=== PATIENT | male | born 1940 | race Caucasian/White ===

== ENCOUNTER 2017-04-13 11:03 | Emergency (ER) | payer MEDICARE, OTHER ==
[~2017-04-13] VITALS: Ht 175.3 cm; Wt 84.1 kg
[2017-04-13 11:06] VITALS: BP 116/65; PULSE 76; RESP 15; O2SAT 98
--- NOTE | 2017-04-13 12:07 | DRSVH ---
PROCEDURE: X-RAY LEFT HAND, MINIMUM THREE VIEWS ([id number]) INDICATIONS: injury TECHNIQUE: 3 views of the hand(s) acquired. COMPARISON: None. FINDINGS: Bones: No fractures or dislocations. Boutonniere deformity of the fifth digit is noted; please corre late with clinical findings. Carpal bones are normally aligned. No suspicious bony lesions. Osteoar thritic degenerative changes are noted. Soft tissues: No suspicious soft tissue calcifications. IMPRESSION: 1. No fracture. No acute osseous lesion. If symptoms and/or clinical suspicion for pathology persists , further assessment with repeat radiographs or advanced imaging (e.g. CT, MRI or bone scan) may be h elpful. 2. Boutonniere deformity of fifth finger. Tendon injury cannot be excluded. Please correlate with cli nical data. Dictated by: Angela Willis MD, PhD on 04/13/2017 at 12:03 Approved by: Angela Willis MD, PhD on 04/13/2017 at 12:05
--- NOTE | 2017-04-13 12:08 | ED.REPORT ---
HPI-Extremity Problem Lower Date of Service Apr 13, 2017 ED Provider: Doc,Ed MD History of Present Illness: swelling on left foot yesterday and left hand today. left side deficits related to stroke in 89. primary care is ramesh . no new pain. is a diabetic. sugars running 120 to 200 per patient. denies injury, mostly non mobile, uses an electric wheel chair for mobility. 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 Ambulatory Status Independent Review of Systems Basic Review of Systems Eyes: Vision NL, No discharge : No dysuria, No frequency Psychiatric: Normal thought content Physical Exam Initial Vital Signs Vital Signs (First) Date Time Temp Pulse Resp B/P Pulse Ox O2 Delivery O2 Flow Rate FiO2 04/13/17 11:06 36.0 76 15 116/65 98 Initial VS: Reviewed, Vital signs normal General/Constitutional: Well-developed, Well-nourished Head / Eyes: Atraumatic, Normocephalic, PERRL ENT: Mucous membranes moist, Conjunctiva normal, No scleral icterus Neck: Supple, Non-tender, Full range of motion Respiratory: Breath sounds normal, Clear to auscultation, No respiratory distress Cardiovascular: Regular rate & rhythm, Heart sounds normal, Intact distal pulses Abdomen / GI: Soft, Non-tender, No guarding, No rebound, No distention Back: No CVA tenderness Lymphatic: No lymphadenopathy Upper Extremities: Vascular intact, Neuro intact, No swelling, No tenderness Skin: Warm, Dry, No cyanosis Neurologic: Alert, Oriented, Nonfocal Psychiatric: Mood/affect normal, Behavior normal, Normal thought content Lower Extremity / Pelvis / MS: Atraumatic, Inspection NL, Full range of motion left foot does not show any obvious swelling. pulses intact, sensation intact. limited range of movement secondary to deficits from a stroke. General/Constitutional: Awake, Alert, No acute distress, Well appearing, Well developed, Well hydrated Respiratory / Chest: Atraumatic, Breath sounds NL, Breath sounds = bilat, No respiratory distress Cardiovascular: Heart rate NL, Regular rhythm, Heart sounds NL, No gallop Skin: Atraumatic, Color NL, No rash left hand with clear edema in , mainly in fingers and wrist. No increased warmth. Interpretation & Diagnostics Interpretation & Diagnostics: PROCEDURE: X-RAY LEFT HAND, MINIMUM THREE VIEWS ([id number]) INDICATIONS: injury TECHNIQUE: 3 views of the hand(s) acquired. COMPARISON: None. FINDINGS: Bones: No fractures or dislocations. Boutonniere deformity of the fifth digit is noted; please correlate with clinical findings. Carpal bones are normally aligned. No suspicious bony lesions. Osteoarthritic degenerative changes are noted. Soft tissues: No suspicious soft tissue calcifications. IMPRESSION: 1. No fracture. No acute osseous lesion. If symptoms and/or clinical suspicion for pathology persists, further assessment with repeat radiographs or advanced imaging (e.g. CT, MRI or bone scan) may be helpful. 2. Boutonniere deformity of fifth finger. Tendon injury cannot be excluded. Please correlate with clinical data. Dictated by: Angela Willis MD, PhD on 04/13/2017 at 12:03 Approved by: Angela Willis MD, PhD on 04/13/2017 at 12:05 Lab Results Interpretation Result Diagram: 04/13/17 1240 04/13/17 1240 Test 04/13/17 12:40 White Blood Count 9.3th/mm3 (3.8-10.1) Red Blood Count 3.90mil/mm3 (4.40-5.80) Hemoglobin 12.5g/dL (13.8-17.2) Hematocrit 36.2% (41.0-50.0) Mean Corpuscular Volume 92.8fL (81-100) Mean Corpuscular Hemoglobin 32.1pg (27.0-35.0) Mean Corpuscular Hemoglobin Concent 34.5% (32.0-37.0) Red Cell Distribution Width 12.9% (12.3-15.4) Platelet Count 205bil/L (150-400) Neutrophils (%) (Auto) 62.6% (40-74) Lymphocytes (%) (Auto) 20.4% (14-46) Monocytes (%) (Auto) 5.3% (4-12) Eosinophils (%) (Auto) 10.7% (0-5) Basophils (%) (Auto) 0.8% (0-3) Sodium Level 138mEq/L (134-144) Potassium Level 3.6mEq/L (3.5-5.2) Chloride Level 101mEq/L (97-108) Carbon Dioxide Level 23mmol/L (18-29) Blood Urea Nitrogen 20mg/dL (8-27) Creatinine 1.88mg/dL (0.76-1.27) Estimat Glomerular Filtration Rate 37mL/min (>59) Glucose Level 258mg/dL (60-99) Lactic Acid Level 1.8mmol/L (0.4-2.0) Calcium Level 9.6mg/dL (8.5-10.1) Total Bilirubin 0.3mg/dL (0.0-1.2) Aspartate Amino Transf (AST/SGOT) 14U/L (0-50) Alanine Aminotransferase (ALT/SGPT) 14U/L (0-44) Alkaline Phosphatase 112U/L (25-160) Total Protein 7.5g/dL (6.4-8.4) Albumin 3.8g/dL (3.4-5.0) US Soft Tissue/Musculoskeletal INDICATIONS: swelling in left hand and left foot TECHNIQUE: Real-time imaging, as well as color and pulse Doppler interrogation, was performed of the left upper extremity deep veins from the inferior neck to the antecubital fossa. COMPARISON: None. FINDINGS: Examination is limited. Within these limits, internal jugular vein, visualized portions of the subclavian vein, axillary, and were visualized brachial veins are free of intraluminal thrombus. Where physically possible, the veins are normally compressible. Color and pulse Doppler demonstrate normal intraluminal flow, with expected phasicity and pulsatility. The proximal through distal cephalic and ulnar veins are not well-visualized. IMPRESSION: No occlusive thrombus of the left upper extremity is present. However, given limitations of this examination, a subtle nonocclusive thrombi within the brachial artery are difficult to exclude. Forearm veins are not well seen. Note: Findings were discussed with Dr. Mirza at approximately 1400 hours on 04/13/17. Dictated by: Sander RAMIREZ Interpreted: Cruz Matthews MD on 04/13/2017 at 14:00 Approved by: Donald Stahl M.D. on 04/13/2017 at 14:47 Re-Eval/Medical Decision Med Decision/Clinical Course 76 year old male presents for left foot and hand swelling. Left foot is minimal if any swelling. Left hand with fluid shift. Patient's primary care is aware of kidney function with pateint stating he was told it was slightly improved at last visit 1 week ago. No sign of any deep vein clot formation or compartment syndrome. Patient provided compression glove from occupational therapy. Discharge & Departure Impression: Primary Impression: Effusion of left hand Additional Impressions: Renal insufficiency Hemoglobin decreased Disposition: Home Patient Instructions: Edema (ED) Additional Instructions: The x-ray is negative for any sign of fracture. Your ultrasound is negative for clot formation in the leg and the upper arm. You have been fitted with a compression glove. Wear this to help decrease the fluid. Your kidney function is at 1.88. This is an increase from the previous value but your provider at the [facility] ia aware and is tracking the numbers. Your hemoglobin and hemacrit have decreased. They are at 12.5 and 36.2. Please compare these values to what your primary care has on file for you. Please follow with the [facility] next week. [facility] EDSupervising Provider for APC: Aly Lux MD copies to: [facility] Alexus Mirza Apr 13, 2017 12:08
[2017-04-13 12:50] LABS: BASOPHILS % (AUTO) 0.8 % (0-3); EOSINOPHILS % (AUTO) 10.7 % (0-5); MONOCYTES % (AUTO) 5.3 % (4-12); Mean Corpuscular Hemoglobin 32.1 pg (27.0-35.0); Mean Corpuscular Volume 92.8 fL (81-100); NEUTROPHILS % (AUTO) 62.6 % (40-74); Platelet Count 205 bil/L (150-400)
[2017-04-13 14:42] VITALS: BP 116/65; PULSE 76; RESP 15; O2SAT 98
--- NOTE | 2017-04-13 14:49 | DRSVH ---
PROCEDURE: US VENOUS ARM DUPLEX UNILATERAL, LEFT INDICATIONS: swelling in left hand and left foot TECHNIQUE: Real-time imaging, as well as color and pulse Doppler interrogation, was performed of the left upper extremity deep veins from the inferior neck to the antecubital fossa. COMPARISON: None. FINDINGS: Examination is limited. Within these limits, internal jugular vein, visualized portions o f the subclavian vein, axillary, and were visualized brachial veins are free of intraluminal thrombus . Where physically possible, the veins are normally compressible. Color and pulse Doppler demonstra te normal intraluminal flow, with expected phasicity and pulsatility. The proximal through distal ce phalic and ulnar veins are not well-visualized. IMPRESSION: No occlusive thrombus of the left upper extremity is present. However, given limitations of this examination, a subtle nonocclusive thrombi within the brachial artery are difficult to exclu de. Forearm veins are not well seen. Note: Findings were discussed with Dr. Mirza at approximately 1400 hours on 04/13/17. Dictated by: Sander RAMIREZ Interpreted: Cruz Matthews MD on 04/13/2017 at 14:00 Approved by: Donald Stahl M.D. on 04/13/2017 at 14:47
--- NOTE | 2017-04-14 01:12 | DRSVH ---
PROCEDURE: US VEINOUS LEG DUPLEX UNILATERAL, LEFT INDICATIONS: swelling in left hand and left foot TECHNIQUE: Real-time imaging, as well as color and pulse Doppler interrogation, were performed of the lower extr emity deep veins from the inguinal ligament to the popliteal fossa. COMPARISON: None. FINDINGS: The deep veins are normally compressible, and free of intraluminal thrombus. Color and pu lse Doppler demonstrate normal phasic intraluminal flow. There is normal augmentation response to di stal compression maneuver. IMPRESSION: No deep venous thrombosis identified within the left lower extremity. Dictated by: Sander Wolff Red Interpreted: Cruz Matthews MD on 04/13/2017 at 14:02 Approved by: Cruz Matthews M.D. on 04/14/2017 at 1:11
== END 2017-04-13 14:30 | disposition home or self-care (01) ==
LOC: SED 11:03
DX: M25.442 Effusion, left hand (principal); N28.9 Disorder of kidney and ureter, unspecified; R71.0 Precipitous drop in hematocrit; F17.200 Nicotine dependence, unspecified, uncomplicated; E11.9 Type 2 diabetes mellitus without complications; Z86.73 Personal history of transient ischemic attack (TIA), and cerebral infarction without residual deficits